=== PATIENT | female | born 1935 | race Caucasian/White ===

== ENCOUNTER → 2017-06-23 | Outpatient (CLI) | payer OTHER, MEDICARE ==
[~2017-06-23] MED LIST: ALBUTEROL2.5 MG/0.5 INH; ALDACTONE25 MG; ALMACONE LIQUI355 ML PER TUBE; APAP500 PO; ARICEPT 5 MG TAB5 MG; ARICEPT 5 MG TAB5 MG PO; ASPIR 8181 MG PO; CENTRUM SILVER1 EAC2 PO; CIPROFLOXACIN500 M1 PO; CLARITIN10 MG PO; DIOVAN320 MG; FLONASE 0.05%50 MCG NASAL; HALLS COUGH DR1 EACH MM; HYDROCODONE-AP1 EAC6 PO; LEVOTHYROXIN0.075 MG PO; LUTEIN PO; MINIPRIN81 MG; MUCINEX TA600 MG/TA2 PO; NAMENDA 5 MG TAB5 M1 PO; OMEPRAZOLE40 MG PO; PROMETHAZINE-C120 ML; PROMETHAZINE-C120 ML PO; RENVELA800 MG; RENVELA800 MG PO; REQUIP0.5 MG PO; ROBAFEN100 MG/5 M PO; SENOKOT-S1 TA1 PO; SERTRALINE HCL50 MG PO; SIMVASTATIN40 MG; SINGULAIR 10 MG10 M1 PO; TORSEMIDE; XANAX 0.25 MG0.25 MG PO
== END ==
LOC: RAD 08:22
DX: I51.7 Cardiomegaly (principal); J98.11 Atelectasis; J15.6 Pneumonia due to other Gram-negative bacteria; I12.0 Hypertensive chronic kidney disease with stage 5 chronic kidney disease or end stage renal disease; E11.22 Type 2 diabetes mellitus with diabetic chronic kidney disease; N18.6 End stage renal disease; K21.9 Gastro-esophageal reflux disease without esophagitis

== ENCOUNTER → 2017-07-12 | Outpatient (CLI) | payer OTHER, MEDICARE | LOC: CAT 07-05 02:23 | DX: I31.3 Pericardial effusion (noninflammatory) (principal); J98.4 Other disorders of lung; I51.7 Cardiomegaly; K80.80 Other cholelithiasis without obstruction; N26.1 Atrophy of kidney (terminal); N28.1 Cyst of kidney, acquired; R93.8 Abnormal findings on diagnostic imaging of other specified body structures; J15.6 Pneumonia due to other Gram-negative bacteria; N18.6 End stage renal disease; J96.00 Acute respiratory failure, unspecified whether with hypoxia or hypercapnia; I12.0 Hypertensive chronic kidney disease with stage 5 chronic kidney disease or end stage renal disease; E11.29 Type 2 diabetes mellitus with other diabetic kidney complication; D63.1 Anemia in chronic kidney disease; K21.9 Gastro-esophageal reflux disease without esophagitis; Z86.73 Personal history of transient ischemic attack (TIA), and cerebral infarction without residual deficits; Z79.4 Long term (current) use of insulin ==

== ENCOUNTER → 2017-08-18 | Outpatient (CLI) | payer OTHER, MEDICARE | LOC: RAD 08:37 → CAT 08:37 | DX: K22.8 Other specified diseases of esophagus (principal) ==

== ENCOUNTER → 2017-11-17 | Outpatient (CLI) | payer OTHER, MEDICARE | LOC: RAD 12:33 | DX: J98.11 Atelectasis (principal); J84.10 Pulmonary fibrosis, unspecified ==